=== PATIENT | female | born 1950 | race Caucasian/White ===

== ENCOUNTER 2020-10-31 06:05 | Day surgery (SDC) | payer MEDICARE ==
[~2020-10-31] VITALS: Ht 177.8 cm; Wt 96.0 kg
[~2020-10-31 06:05] MED LIST: BUPR150ER PO; Celexa10 MG PO; ENOX40I SC; GABA300 PO; HYDCHL12.5 PO; Percocet 5-3251 EACH PO
--- NOTE | 2020-10-31 06:19 | NUR ---
Ambulatory in Day Surgery. History, Chart, Medications and Allergies reviewed before start of procedure. Lungs clear T/O to Auscultation. Patient reports completing Chlorhexadine shower X2 prior to admission to hospital.
--- NOTE | 2020-10-31 19:27 | NUR ---
SHIFT SUMMARY PT A&OX4, VSS, S/P R GUILLERMO SURG DRESSING/SURG TAPE, TEDS/SCDS/POLAR JACQUIE. PHYSICAL THERAPY EVAL'D. AMB W/FWW&GB TO BRP, UP TO CHAIR. NAUSEA TREATED PER EMAR. VOIDED. IVF @ 70 MLS/HR; ABX ORDERED PER EMAR. REPORT TO MATTHEW HIDALGO.
[2020-11-01 04:43] LABS: BASOPHILS ABSOLUTE AUTO 0.03 K/mm3 (0.00-0.23); BASOPHILS PERCENT AUTO 1 % (0-2); EOSINOPHILS ABSOLUTE AUTO 0.04 K/mm3 (0.00-0.68); EOSINOPHILS PERCENT AUTO 1 % (0-6); Hematocrit 34.5 % (33.0-51.0); Hemoglobin 11.5 g/dL (11.5-16.0); IMMATURE GRAN ABSOLUTE AUTO 0.03 K/mm3 (0.00-0.10); IMMATURE GRAN PERCENT AUTO 1 % (0-1); LYMPHOCYTES ABSOLUTE AUTO 1.78 K/mm3 (0.84-5.20); LYMPHOCYTES PERCENT AUTO 29 % (21-46); MONOCYTES ABSOLUTE AUTO 0.63 K/mm3 (0.16-1.47); MONOCYTES PERCENT AUTO 10 % (4-13); Mean Corpuscular HGB 31.3 pg (26.0-34.0); Mean Corpuscular HGB Conc 33.3 g/dL (31.5-36.5); Mean Corpuscular Volume 94 fL (80-100); Mean Platelet Volume 9.9 fL (9.1-12.4); NEUTROPHILS PERCENT AUTO 59 % (41-73); Platelet Count 180 K/mm3 (150-400); RDW Standard Deviation 45.1 fL (35.1-46.3); Red Blood Cell Count 3.67 M/mm3 (3.80-5.20); White Blood Cell Count 6.11 K/mm3 (4.00-11.30)
[2020-11-01 05:03] LABS: Anion Gap 4 mmol/L (6-16); Blood Urea Nitrogen 11 mg/dL (8-24); Bun/Creatinine Ratio 17.5 (12.0-20.0); CO2, Blood 29 mmol/L (21-32); Calcium, Blood 8.4 mg/dL (8.5-10.1); Chloride, Blood 106 mmol/L (98-108); Creatinine, Blood 0.63 mg/dL (0.40-1.00); Glomerular Filtration Rate >60 (60-); Glucose, Blood 88 mg/dL (70-99); Magnesium, Blood 1.9 mg/dL (1.6-2.4); Potassium, Blood 3.3 mmol/L (3.5-5.5); Sodium, Blood 139 mmol/L (136-145)
--- NOTE | 2020-11-01 06:08 | NUR ---
PATIENT ALERT AND ORIENTED. VSS ON RA. PAIN MANAGED WELL W/ CURRENT PAIN MEDS. PT AMBULATED IN HALLWAY AND TOILET W/ FWW, GAITBELT, AND 1 PERSON ASSIST. IV FLUIDS D/C DURING NIGHT. PT TOLERATING EATING AND DRINKING WELL, DENIES NAUSEA. SLEEPING B/W CARE. USING CALL LIGHT TO MAKE NEEDS KNOWN.
--- NOTE | 2020-11-01 10:35 | NUR ---
DISCHARGE SUMMARY PT A&OX4, VSS, TALI PO, VOIDING, AMBULATING W/FWW, PAIN MANAGED; LEFT FLOOR VIA WC WITH ENVIRONMENTAL MAINTENANCE WORKER TO GO HOME WITH PARTNER WITH ALL PERSONAL POSSESSIONS INCLUDING DC PACKET AND ABD PADS FOR DAILY+ DRESSING CHANGES. PT REP HAVING FWW, ASA AND PAIN MED AT HOME. DC INSTRUCTIONS PROVIDED. PT AND PARTNER REP UNDERSTANDING THOSE INSTRUCTIONS, FU WITH & WHEN TO CALL SURGEON, PHYSICAL THERAPY, ANTICOAG, PAIN MANAGEMENT, SHORT FREQUENT AMB WITH REST PERIODS ICED/ELEVATED. IV DC'D.
== END 2020-11-01 10:31 | disposition home or self-care (01) ==
LOC: ORSCMMR 06:05 → ORD 07:30 → SURS 10:55 → ORSCMMR 11-01 10:31
PROVIDERS: Orthopaedic Surgery
PROC: 8E0YXBZ Computer Assisted Procedure of Lower Extremity (ICD-10-PCS; principal; 2020-10-31 07:30)
PROC: 0SR90JA Replacement of Right Hip Joint with Synthetic Substitute, Uncemented, Open Approach (ICD-10-PCS; principal; 2020-10-31 07:30)
DX: M16.11 Unilateral primary osteoarthritis, right hip (principal); I10 Essential (primary) hypertension; F41.9 Anxiety disorder, unspecified; Z79.899 Other long term (current) drug therapy
CPT/HCPCS: 36415; 72170; 80048; 83735; 85025; 97110; 97116; 97161; 97530; A9270; C1713; C1776; J0171; J0690; J0735; J1885; J2370; J2405; J2704; J2765; J2795; J3010; J3370; J7120

== ENCOUNTER 2023-11-09 09:33 | Day surgery (SDC) | payer OTHER ==
[~2023-11-09] VITALS: Ht 177.8 cm; Wt 85.3 kg
[~2023-11-09 09:33] MED LIST changes: +Lactated Ringer's 1,000 ML IV ONE; +propofoL 50 ML IV ONE
[2023-11-09] MEDS ORDERED: Lactated Ringer's 1,000 ML IV ONE (09:41)
[2023-11-09] MEDS ORDERED: ZOCOR20 MG (09:50)
[2023-11-09] MEDS ORDERED: TOPI25 (09:50)
[2023-11-09] MEDS ORDERED: LISI20 (09:50)
[2023-11-09] MEDS ORDERED: QSYMIA 3.75 MG (09:51)
[2023-11-09] MEDS ORDERED: GABA300 (09:52)
[2023-11-09 11:09] VITALS: BP 94/83
== END 2023-11-09 11:11 | disposition home or self-care (01) ==
LOC: ORSCSDS 09:33
PROVIDERS: Specialist
PROC: 0DBK8ZX Excision of Ascending Colon, Via Natural or Artificial Opening Endoscopic, Diagnostic (ICD-10-PCS; principal; 2023-11-09 10:45)
PROC: 0DBH8ZX Excision of Cecum, Via Natural or Artificial Opening Endoscopic, Diagnostic (ICD-10-PCS; principal; 2023-11-09 10:45)
DX: Z12.11 Encounter for screening for malignant neoplasm of colon (principal); K59.09 Other constipation; K64.8 Other hemorrhoids; K57.30 Diverticulosis of large intestine without perforation or abscess without bleeding; D12.0 Benign neoplasm of cecum; K63.5 Polyp of colon; Z98.84 Bariatric surgery status; Z85.72 Personal history of non-Hodgkin lymphomas; I10 Essential (primary) hypertension; E78.5 Hyperlipidemia, unspecified; Z80.0 Family history of malignant neoplasm of digestive organs; Z87.891 Personal history of nicotine dependence; Z79.899 Other long term (current) drug therapy
CPT/HCPCS: 88305; J2704; J7120

== ENCOUNTER → 2024-03-03 | Outpatient (CLI) | payer OTHER ==
[~2024-03-03] MED LIST changes: +GABA300; +LISI20; -Lactated Ringer's 1,000 ML IV ONE; +QSYMIA 3.75 MG; +TOPI25; +ZOCOR20 MG; -propofoL 50 ML IV ONE
[2024-03-03 11:31] LABS: Source, Urine Clean Catch
[2024-03-03 18:51] LABS: Appearance, Urine Clear (Clear); Bilirubin, Urine Neg (Neg); Blood, Urine Neg (Neg); Color, Urine Yellow (P-Yellow); Glucose Qualitative, Urine Neg (Neg); Ketones, Urine Neg (Neg); Leukocyte Esterase, Urine Neg (Neg); Nitrite, Urine Neg (Neg); Protein, Urine Neg (Neg); Specific Gravity, Urine 1.015 (1.003-1.022); Urobilinogen, Urine NORM (Normal)
== END ==
LOC: LAB 11:03 → LAB SHORT 11:03
PROVIDERS: Nurse Practitioner Family
DX: I10 Essential (primary) hypertension (principal)
CPT/HCPCS: 81003